=== PATIENT | male | born 1990 | race Caucasian/White ===

== ENCOUNTER 2018-06-20 22:57 | Emergency (ER) | payer MEDICAID ==
[2018-06-20] MEDS: DIPHTH/TET/ACEL PERTUSS (ADULT) 0.5 ML VIAL IM* (23:57)
[2018-06-20] MEDS: LIDOCAINE 1% (MPF) 5 ML VIAL INFIL (23:57)
== END 2018-06-21 02:15 | disposition home or self-care (01) ==
LOC: FTE 06-21 02:15
DX: S61.212A Laceration without foreign body of right middle finger without damage to nail, initial encounter (principal); W26.0XXA Contact with knife, initial encounter; Y92.009 Unspecified place in unspecified non-institutional (private) residence as the place of occurrence of the external cause; Z23 Encounter for immunization
CPT/HCPCS: 12001; 90471; 90715; 99283-25

== ENCOUNTER 2018-06-22 18:10 | Emergency (ER) | payer MEDICAID | END 2018-06-22 19:37 | disposition home or self-care (01) | LOC: FTE 19:37 | DX: Z48.01 Encounter for change or removal of surgical wound dressing (principal) | CPT/HCPCS: 99281; Z7502 ==